=== PATIENT | male | born 1975 | race Caucasian/White ===

== ENCOUNTER → 2019-02-22 | Outpatient (CLI) | payer OTHER ==
[2019-02-22 11:26] LABS: ABSOLUTE BASOPHILS 0.2 thou/uL (0.0-0.2); ABSOLUTE EOSINOPHILS 0.2 thou/uL (0.0-0.7); ABSOLUTE LYMPHOCYTES 2.8 thou/uL (0.8-5.3); ABSOLUTE MONOCYTES 0.6 thou/uL (0.0-1.2); ABSOLUTE NEUTROPHILS 4.3 thou/uL (1.6-8.1); BASOPHILS 2.5 %; HEMATOCRIT 47.5 % (42.0-52.0); HEMOGLOBIN 16.6 gm/dL (14.0-18.0); LYMPHOCYTES 34.5 %; MCH 29.6 pg (26.0-34.0); MCHC 34.9 g/dL (28.0-37.0); MCV 84.9 fL (80.0-100.0); MONOCYTES 7.3 %; MPV 8.8 fl. (7.2-11.1); NUCLEATED RBCS 0 /100WBC; PLATELET COUNT* 269 thou/uL (150-400); POLYS 53.7 %; RBC 5.59 mil/uL (4.50-6.00); RDW-CV 13.6 % (10.5-14.5)
[2019-02-22 11:36] LABS: ALBUMIN 3.7 g/dL (3.4-5.0); ALKALINE PHOSPHATASE 113 U/L (46-116); ANION GAP 10 mmol/L (7-16); BUN 19 mg/dL (7-18); CALCIUM 8.5 mg/dL (8.5-10.1); CHLORIDE 101 mmol/L (98-107); CHOLESTEROL 229 mg/dL (<200); CO2 30 mmol/L (21-32); CREATININE 1.3 mg/dL (0.6-1.3); GLUCOSE 110 mg/dL (70-99); HDL CHOLESTEROL 31 mg/dL (>40); LDL CHOLESTEROL 155 mg/dL (<100); MAGNESIUM 1.8 mg/dL (1.8-2.4); POTASSIUM 3.7 mmol/L (3.5-5.1); SERUM ASSESSMENT Clear; SGOT 20 U/L (15-37); SGPT 49 U/L (30-65); SODIUM 141 mmol/L (136-145); TC:HDL 7.4 Ratio (Not establshd); TOTAL BILIRUBIN 0.8 mg/dL (<0.1-1.0); TOTAL PROTEIN 8.1 g/dL (6.4-8.2); TRIGLYCERIDE 216 mg/dL (<150); VLDL 43 mg/dL (<40)
== END ==
LOC: M.LAB 11:02
PROVIDERS: Family Medicine
DX: Z00.01 Encounter for general adult medical examination with abnormal findings (principal); Z13.1 Encounter for screening for diabetes mellitus; E78.5 Hyperlipidemia, unspecified; I10 Essential (primary) hypertension; Z68.41 Body mass index [BMI] 40.0-44.9, adult

== ENCOUNTER → 2019-02-23 | Outpatient (CLI) | payer OTHER | LOC: M.ULTRA 07:58 | DX: L72.0 Epidermal cyst (principal) ==

== ENCOUNTER → 2019-04-08 | Outpatient (CLI) | payer OTHER | LOC: M.CT 09:01 | DX: Z13.6 Encounter for screening for cardiovascular disorders (principal); E78.00 Pure hypercholesterolemia, unspecified; I25.10 Atherosclerotic heart disease of native coronary artery without angina pectoris ==

== ENCOUNTER → 2019-04-13 | Outpatient (CLI) | payer OTHER ==
[2019-04-13] VITALS (11 sets, daily range): BP systolic 107–155; BP diastolic 67–102
--- NOTE | 2019-04-13 11:16 | TEE ---
[place] [address] TRANSESOPHAGEAL ECHOCARDIOGRAM Name: VIOLETA GRIFFIN Room: [facility]#: [id number] Admission: 04/13/19 Attend Phys: Ben Garcia, Discharge: Date of : 77 Date of Service: 04/13/19 1115 Report #: [id number] THIS REPORT FOR: cc: Blake Ford Adam J DO Liston, Michael J. MD [facility] ~ APPROVED REPORT Study performed: 04/13/2019 09:47:47 EXAM: Transesophageal Echocardiogram Patient Location: Out-Patient Status: routine BSA: 2.61 HR: 59 bpm BP: 143/95 mmHg Rhythm: NSR Other Information Study Quality: Good Indications Syncope Echo Enhancing Agent Indication: Rule out Shunt Agent(s) / Amount(s) Used: Agitated Saline 10 cc Procedure After obtaining informed consent, patient underwent transesophageal echo in the [employer]. Type of Sedation : Conscious Sedation Sedation was administered by Lawrence To RN. Sedation start time: 1005 Case end Time: 1024 Sedation was achieved intravenously with: Versed (4) Fentanyl (100) Transesophageal probe was inserted and advanced into esophagus without difficulty by Ben Garcia MD, FACC. Echo enhancement indication: R/O Septal defect. Echo enhancement agent administered: Agitated Saline The MORIAH was performed without complications. Throughout the procedure, the blood pressure, pulse oximetry, cardiac rhythm, and rate were monitored. The patient tolerated the procedure without adverse [place] [address] TRANSESOPHAGEAL ECHOCARDIOGRAM Name: VIOLETA GRIFFIN Room: [facility]#: [id number] Admission: 04/13/19 Attend Phys: Ben Garcia, Discharge: Date of : 77 Date of Service: 04/13/19 1115 Report #: [id number] from conscious sedation was uneventful and vital signs were stable. Left Ventricle The left ventricle is normal size. There is normal LV segmental wall motion. There is normal left ventricular wall thickness. Left ventricular systolic function is normal. LVEF is 60-65%. Right Ventricle The right ventricle is normal size. The right ventricular systolic function is normal. Atria The left atrium size is normal. No thrombus is visualized in the left atrium or appendage. The interatrial septum is intact with no evidence for an atrial septal defect. The right atrium size is normal. Aortic Valve The aortic valve is normal in structure. No aortic regurgitation is present. There is no aortic valvular stenosis. Mitral Valve The mitral valve is normal in structure. Trace mitral regurgitation. No evidence of mitral valve stenosis. Tricuspid Valve The tricuspid valve is not well visualized. Pulmonic Valve Pulmonic valve is not well visualized. Great Vessels The aortic root is normal in size. The ascending aorta is normal in size. No atherosclerosis present in the aorta Pericardium There is no pericardial effusion. <Conclusion> The left ventricle is normal size. There is normal left ventricular wall thickness. Left ventricular systolic function is normal. LVEF is 60-65%. The interatrial septum is intact with no evidence for an atrial [place] [address] TRANSESOPHAGEAL ECHOCARDIOGRAM Name: VIOLETA GRIFFIN Room: [facility]#: [id number] Admission: 04/13/19 Attend Phys: Ben Garcia, Discharge: Date of : 77 Date of Service: 04/13/191114 Report #: [id number] The left atrium size is normal. No thrombus is visualized in the left atrium or appendage. Trace mitral regurgitation. The ascending aorta is normal in size. No atherosclerosis present in the aorta <ELECTRONICALLY SIGNED> By: Ben Garcia MD, FACC 04/13/191114 14 14 Ben Garcia MD, FACC /INF
== END | disposition home or self-care (01) ==
LOC: M.CL 09:11
DX: R55 Syncope and collapse (principal); I34.0 Nonrheumatic mitral (valve) insufficiency; Z98.890 Other specified postprocedural states; Z79.899 Other long term (current) drug therapy; Z86.73 Personal history of transient ischemic attack (TIA), and cerebral infarction without residual deficits

== ENCOUNTER → 2019-04-23 | Outpatient (CLI) | payer OTHER | LOC: M.LAB 10:56 | DX: G45.9 Transient cerebral ischemic attack, unspecified (principal) ==

== ENCOUNTER → 2019-04-26 | Outpatient (CLI) | payer OTHER | LOC: M.MRI 04-06 07:29 | DX: G45.9 Transient cerebral ischemic attack, unspecified (principal) ==

== ENCOUNTER → 2019-06-14 | Outpatient (CLI) | payer OTHER ==
[2019-06-14 12:42] LABS: ALBUMIN 3.7 g/dL (3.4-5.0); ALKALINE PHOSPHATASE 149 U/L (46-116); DIRECT BILIRUBIN 0.2 mg/dL (<0.1-0.3); SGOT 28 U/L (15-37); SGPT 71 U/L (30-65); TOTAL PROTEIN 7.4 g/dL (6.4-8.2)
[2019-06-14 12:44] LABS: SERUM ASSESSMENT Clear
[2019-06-14 12:55] LABS: CHOLESTEROL 147 mg/dL (<200); HDL CHOLESTEROL 29 mg/dL (>40); LDL CHOLESTEROL 84 mg/dL (<100); TC:HDL 5.1 Ratio (Not establshd); TRIGLYCERIDE 172 mg/dL (<150); VLDL 34 mg/dL (<40)
== END ==
LOC: M.LAB 12:11
PROVIDERS: Registered Nurse
DX: E78.5 Hyperlipidemia, unspecified (principal)

== ENCOUNTER → 2019-07-14 | Outpatient (CLI) | payer OTHER ==
--- NOTE | ~2019-07-14 | EEG ---
[address] [address] EEG STUDY REPORT Name: VIOLETA GRIFFIN Room: [facility]#: [id number] Admission: 07/14/19 Attend Phys: Juan Foreman MD Discharge: Date of : 77 Report #: [id number] THIS REPORT FOR: //name// CC: Blake Foreman DATE OF SERVICE: 07/14/2019 This patient is being evaluated for the possibility of TIA and syncope. EEG was done by placing the electrode by standard 10-20 system of electrode placement. Both referential and sequential montages were used for recording. Background activity in this patient's EEG is about 10-11 Hz and 20-30 microvolts. Photic stimulation is unremarkable. The patient became drowsy and that is associated with bilateral slowing and vertex sharp waves. Throughout the record, no active epileptiform activity was noticed. IMPRESSION: This patient's EEG is unremarkable. Thank you very much for this referral. By: 1250 1304Pava Foreman MD /nt
== END ==
LOC: M.CRD 04-28 13:00
DX: G45.9 Transient cerebral ischemic attack, unspecified (principal); R55 Syncope and collapse

== ENCOUNTER → 2020-10-11 | Outpatient (CLI) | payer OTHER ==
[2020-10-11 09:59] LABS: ALBUMIN 3.7 g/dL (3.4-5.0); ALKALINE PHOSPHATASE 180 U/L (46-116); CHOLESTEROL 138 mg/dL (<200); DIRECT BILIRUBIN 0.2 mg/dL (<0.1-0.3); HDL CHOLESTEROL 30 mg/dL (>40); LDL CHOLESTEROL 78 mg/dL (<100); SGOT 23 U/L (15-37); SGPT 54 U/L (30-65); TC:HDL 4.6 Ratio (Not establshd); TOTAL PROTEIN 6.9 g/dL (6.4-8.2); TRIGLYCERIDE 153 mg/dL (<150); VLDL 31 mg/dL (<40)
[2020-10-11 10:06] LABS: SERUM ASSESSMENT Clear
== END ==
LOC: M.LAB 09:14
PROVIDERS: ATTEND Internal Medicine Cardiovascular Disease
DX: E78.2 Mixed hyperlipidemia (principal)

== ENCOUNTER → 2020-10-31 | Outpatient (CLI) | payer OTHER | LOC: M.ULTRA 13:00 | PROVIDERS: ATTEND Otolaryngology | DX: E04.2 Nontoxic multinodular goiter (principal) ==

== ENCOUNTER → 2020-11-03 | Outpatient (CLI) | payer OTHER ==
--- NOTE | 2020-11-08 12:07 | PATH ---
[address] [address] PATHOLOGY RPT PROCEDURE Name: VIOLETA GRIFFIN Room: [facility].#: [id number] Admission: 11/03/20 Date of : 77 Discharge: Report #: [id number] Path Case #: [id number] Note [facility] Accession Number: [id number] TESTS RESULT FLAG UNITS REF RANGE LAB Clinician Provided Cytology Information No. of containers..01 Other (Miscellaneous) Source: 01 LEFT THYROID DIAGNOSIS: 02 LEFT THYROID NODULE (3.7 X 3.3 X 3.3 CM), IMAGE-GUIDED FNA: NEGATIVE FOR MALIGNANT CELLS. BETHESDA CATEGORY II. SPECIMEN CONSISTS OF BENIGN FOLLICULAR CELLS, HEMOSIDERIN-LADEN MACROPHAGES, COLLOID, AND BLOOD. 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 Pathologist ICD10: 02 E04.1 Signed out by: 02 Jelani Suarez MD, Pathologist NPI- [id number] Performed by: Burt Jaquez, [employer] ([facility]) Gross description: 01 10ML, HAZY LIGHT, RED /LCS 11/06/2020 1924 Local FLAG LEGEND: L-Low Normal,H-High Normal,LL-Alert Low,HH-Alert High <-Panic Low,>-Panic High,A-Abnormal,AA-Critical Abnormal Performed at: [address] [place] [address] Kody Valentin MD, [address] [place] [id number] Jelani Suarez MD, Specimen Comment: A courtesy copy of this report has been sent to [phone] Specimen Comment: [phone] Specimen Comment: Report sent to / DR BEAR Specimen Comment: A duplicate report has been generated due to demographic updates. Performed at: [address], [place], [place] [id number] MD Kody Valentin MD Phone: [phone]
== END | disposition home or self-care (01) ==
LOC: M.ULTRA 08:04
PROVIDERS: ATTEND Otolaryngology
DX: E04.1 Nontoxic single thyroid nodule (principal)

== ENCOUNTER → 2020-11-21 | Outpatient (CLI) | payer OTHER | LOC: M.CT 13:47 | PROVIDERS: ATTEND Otolaryngology | DX: J34.3 Hypertrophy of nasal turbinates (principal); J34.89 Other specified disorders of nose and nasal sinuses ==

== ENCOUNTER 2020-12-06 06:25 | Inpatient (IN) | payer OTHER ==
[~2020-12-06] VITALS: Ht 182.9 cm; Wt 147.4 kg
[~2020-12-06 06:25] MED LIST: ATENOLOL 50MG T50 M1 PO; LIPITOR40 MG PO
[2020-12-06 07:11] LABS: HEMATOCRIT 46.1 % (42.0-52.0); HEMOGLOBIN 15.7 gm/dL (14.0-18.0); MCH 29.4 pg (26.0-34.0); MCV 86.7 fL (80.0-100.0); MPV 8.4 fl. (7.2-11.1); RBC 5.32 mil/uL (4.50-6.00); RDW-CV 13.7 % (10.5-14.5)
[2020-12-06 07:20] LABS: CALCIUM 8.4 mg/dL (8.5-10.1)
--- NOTE | 2020-12-06 09:59 | EKG ---
[place] [address] ELECTROCARDIOGRAM REPORT Name: VIOLETA GRIFFIN Room: [address] M.R.#: [id number] Admission: 12/06/20 Attend Phys: Jarrett Bolivar Discharge: Date of : 77 Date of Service: 12/06/20 0657 Report #: [id number] THIS REPORT FOR: //name// [facility] Test Date: 2020-12-06 Test Time: 06:57:28 Pat Name: VIOLETA GRIFFIN Department: Room: [place] [address] Gender: M Kier Hand: ,SRIDHAR : 1975 Requested By: Chilo Austin Order Number: [id number] Handy MD: Hesham Mckeon Measurements Intervals Bowman Rate: 59 P: 3 LA: 185 QRS: -20 QRSD: 99 T: 2 QT: 428 QTc: 424 Interpretive Statements Sinus rhythm Borderline left axis deviation Low voltage, precordial leads Compared to ECG 10/25/2015 14:50:59 Low QRS voltage now present Electronically Signed On 12-06-2020 9:59:25 CDT by Hesham Mckeon [email or web address] <ELECTRONICALLY SIGNED> By: Hesham Mckeon MD, FACC 12/06/20 0959 [id number] Hesham Mckeon MD, [facility] /EPI
[2020-12-06 15:17] LABS: CALCIUM 8.5 mg/dL (8.5-10.1); CREATININE 1.2 mg/dL (0.6-1.3); PHOSPHORUS* 3.5 mg/dL (2.5-4.9)
[2020-12-06 18:21] VITALS: BP 140/83
[2020-12-06 20:40] VITALS: BP 129/70
[2020-12-06 23:57] VITALS: BP 102/57
[2020-12-07 04:14] VITALS: BP 115/68
[2020-12-07 04:26] LABS: HEMATOCRIT 44.1 % (42.0-52.0); MCH 29.7 pg (26.0-34.0); MCHC 33.9 g/dL (28.0-37.0); MCV 87.5 fL (80.0-100.0); MPV 8.4 fl. (7.2-11.1); RBC 5.04 mil/uL (4.50-6.00); RDW-CV 13.9 % (10.5-14.5); WBC 10.2 thou/uL (4.0-11.0)
[2020-12-07 04:48] LABS: CREATININE 1.2 mg/dL (0.6-1.3)
[2020-12-07 08:00] VITALS: BP 140/77
[2020-12-07] MEDS ORDERED: OS-CAL 500+D31 EACH PO (09:46)
[2020-12-07 11:07] LABS: CREATININE 1.2 mg/dL (0.6-1.3); PHOSPHORUS* 4.4 mg/dL (2.5-4.9)
[2020-12-07 11:23] VITALS: BP 115/68
[2020-12-07 11:50] VITALS: BP 115/68
--- NOTE | 2020-12-11 16:06 | PATH ---
[address] [address] PATHOLOGY RPT PROCEDURE Name: GABYDHARMESH GERARDO Room: [address] M.R.#: [id number] Admission: 12/06/20 Date of : 77 Discharge: 12/07/20 Report #: [id number] Path Case #: [id number] [facility] Accession Number: [id number] . 01 Material submitted: . thyroid gland - TOTAL THYROID . 01 Clinical history: . THYROIDECTOMY . 02 Diagnosis: Total thyroid: - Multiple, bilateral adenomatoid nodules with focal capsular calcification and nonspecific chronic thyroiditis, negative for malignancy. - Benign lymph node in region of pyramidal lobe. . (CHAUNCEY:mml; 12/11/2020) QL 12/11/2020 1053 Local . 02 Electronically signed: . Jelani Suarez MD, Pathologist NPI- [id number] . 01 Gross description: . Received in formalin labeled "Dharmesh Dee, total thyroid" is a thyroidectomy specimen weighing 67 g. The right lobe measures 5.8 x 3.7 x 3.5 cm, the left lobe measures 6.7 x 4.2 x 3.4 cm, the isthmus measures 3.5 x 3.5 x 1.4 cm, and the pyramidal lobe measures 1.5 x 1.5 x 0.8 cm. The external surface is focally yang-brown and smooth in areas, with multiple capsular defects ranging from 0.3-1.7 cm in greatest dimension. The defects are located on the anterior and posterior surfaces of all lobes. The specimen is inked as follows: Anterior right-green, anterior left-blue, anterior isthmus/pyramidal lobe-orange, entire posterior-black. The specimen is serially sectioned from superior to inferior to reveal numerous yang-brown gelatinous nodules throughout the parenchyma ranging from 0.3-1.7 cm. A large encapsulated yang-brown nodule is also present within the left lobe measuring 6.0 x 3.7 x 3.0 cm, and comprising nearly the entire left lobe. Uninvolved yang-brown homogeneous thyroid parenchyma is present within the superior right and left poles, comprising approximately 30% of the specimen. Rn Provider Relations sections are submitted as follows: A1 right superior lobe A2 right middle lobe A3 right inferior lobe A4 pyramidal lobe A5 isthmus A6 [place] [address] PATHOLOGY RPT PROCEDURE Name: DHARMESH DEE Room: [address] M.R.#: [id number] Admission: 12/06/20 Date of : 77 Discharge: 12/07/20 Report #: [id number] Path Case #: [id number] left mid and inferior lobes displaying largest nodule (SKC; 12/07/2020) SYC/SYC 12/11/2020 1050 Local . 02 Pathologist provided ICD-10: E04.2, E06.5 . 02 CPT . [id number] Specimen Comment: A courtesy copy of this report has been sent to [phone] Specimen Comment: [phone], Specimen Comment: Report sent to , DR BEAR / DR WASHINGTON Performed at: 01 [facility] [address], [place] [id number] MD Kody Valentin MD Phone: [phone] Performed at: 02 [facility] [address], [place], [place] [id number] MD Jelani Suarez MD Phone: [phone]
== END 2020-12-07 12:01 | disposition home or self-care (01) | DRG 627 ==
LOC: M.TBA 06:25 → M.PRE 06:50 → M.3W 16:50
PROVIDERS: Family Medicine; Otolaryngology; ADMIT Internal Medicine; ATTEND Internal Medicine
PROC: 0GTK0ZZ Resection of Thyroid Gland, Open Approach (ICD-10-PCS; principal; 2020-12-06)
DX: E04.1 Nontoxic single thyroid nodule (principal); I10 Essential (primary) hypertension; I25.10 Atherosclerotic heart disease of native coronary artery without angina pectoris; E78.5 Hyperlipidemia, unspecified; Z86.73 Personal history of transient ischemic attack (TIA), and cerebral infarction without residual deficits; Z20.822 Contact with and (suspected) exposure to COVID-19

== ENCOUNTER → 2021-02-07 | Outpatient (CLI) | payer OTHER ==
[~2021-02-07] MED LIST changes: +OS-CAL 500+D31 EACH PO
== END ==
LOC: M.LAB 14:20
PROVIDERS: ATTEND Otolaryngology
DX: E03.9 Hypothyroidism, unspecified (principal)

== ENCOUNTER → 2021-03-26 | Outpatient (CLI) | payer OTHER ==
[2021-03-26 10:22] LABS: ALBUMIN 3.5 g/dL (3.4-5.0); CALCIUM 8.2 mg/dL (8.5-10.1); POTASSIUM 3.8 mmol/L (3.5-5.1); TOTAL BILIRUBIN 0.6 mg/dL (<0.1-1.0)
[2021-03-26 12:48] LABS: PHOSPHORUS* 3.7 mg/dL (2.5-4.9)
[2021-03-26 12:50] LABS: CALCIUM 8.2 mg/dL (8.5-10.1)
== END ==
LOC: M.LAB 09:24
PROVIDERS: ATTEND Internal Medicine Endocrinology, Diabetes & Metabolism
DX: E20.9 Hypoparathyroidism, unspecified (principal); E03.9 Hypothyroidism, unspecified; R73.03 Prediabetes